=== PATIENT | male | born 1945 | race Caucasian/White ===

== ENCOUNTER → 2017-03-01 | Outpatient (CLI) | payer MEDICARE, OTHER ==
[~2017-03-01] MED LIST: COUMADIN5 MG PO; FINASTERIDE5 MG PO; FLOMAX0.4 MG PO; KEFLEX500 MG PO; LISINOPRIL2.5 MG PO; LISINOPRIL40 MG PO; MYSOLINE50 MG PO; NORVASC2.5 MG PO; PANTOPRAZOLE SO40 MG PO; PERCOCET 5/31 TABLET PO; PRAVASTATIN SOD40 MG PO; PRAVASTATIN SOD80 MG PO; PRINIVIL20 MG PO; TYLENOL WITH C1 EACH PO; ZOFRAN4 MG PO
== END | disposition home or self-care (01) ==
LOC: CDC 11:08
DX: R94.31 Abnormal electrocardiogram [ECG] [EKG] (principal); M19.032 Primary osteoarthritis, left wrist
CPT/HCPCS: 93000